=== PATIENT | male | born 1990 | race Caucasian/White ===

== ENCOUNTER → 2020-12-04 | Emergency (ER) | payer OTHER, MEDICAID ==
[~2020-12-04] VITALS: Ht 175.3 cm; Wt 172.4 kg
[~2020-12-04] MED LIST: ALBUTEROL INHAL17 GM IH; DOXYCYCLINE 10100 MG PO; GEODON60 MG PO; KAPVAY0.1 MG PO; LORTABELXR PO; LOVASTAT20 PO; PHENERGAN 25 MG25 M1; SYNTHROID50 MCG PO; VYVANSE30 MG PO; ZANTAC 150MG T150 M1 PO
[2020-12-04 13:53] VITALS: BP 145/94
== END ==
LOC: M.ERS 13:50
DX: S01.01XA Laceration without foreign body of scalp, initial encounter (principal); Z79.899 Other long term (current) drug therapy; W22.8XXA Striking against or struck by other objects, initial encounter; Y93.89 Activity, other specified; Y92.89 Other specified places as the place of occurrence of the external cause; Y99.8 Other external cause status